=== PATIENT | female | born 1930 | race African-American/Black ===

== ENCOUNTER 2017-09-20 13:14 | Emergency (ER) | payer MEDICARE, OTHER ==
[~2017-09-20] VITALS: Ht 170.2 cm; Wt 71.4 kg
[~2017-09-20 13:14] MED LIST: ASPIRIN 32325 MG/TAB PO; ASPIRIN E.C. 8181 MG PO; COZAAR 50MG50 MG/TAB PO; COZAAR100 MG PO; DILANTIN 100MG100 MG PO; DILANTIN KAPSEA30 MG PO; HCTZ 25MG TAB25 MG PO; K-DUR 10 MEQ T10 MEQ PO; K-TAB20 PO; KEPPRA1000 MG PO; PLAVIX 75MG TAB75 MG PO; SYNTHROID 0.0.025 MG PO; SYNTHROID0.05 MG/TA PO; ZOCOR 20MG20 MG PO; ZOCOR 40MG40 MG PO; ZOCOR5 MG PO
[2017-09-20 13:22] VITALS: BP 189/79; TEMP 97.2
[2017-09-20] MEDS ORDERED: ALDACTONE 25MG25 M1 PO (13:59)
[2017-09-20] MEDS ORDERED: ZONEGRAN50 MG PO (14:00)
[2017-09-20 14:37] LABS: BASO # 0.1 (0.0-0.2); BASO % 0.8 % (0.0-2.0); EOS % 0.4 % (0-4.0); GRAN # 6.6 (1.4-6.5); GRAN % 84.3 % (42.2-75.2); HEMOGLOBIN 11.7 g/dl (12.5-16.0); LYMPH # 0.7 (1.2-3.4); LYMPH % 9.3 % (20.0-51.0); MEAN CELL VOLUME 92 fl (80.0-100.0); MEAN CORPUSCULAR HEMOGLOBIN 30 pg (27.0-31.0); MEAN CORPUSCULAR HGB CONC 33 g/dl (33.0-37.0); MEAN PLATELET VOLUME 9.3 fl (7.4-10.4); MONO # 0.4 (0.1-0.6); MONO % 4.9 % (1.7-9.3); PLATELET COUNT 284 K/mm3 (130-400); RED BLOOD COUNT 3.88 M/mm3 (4.10-5.30); REDCELL DISTRIBUTION WIDTH-CV 13.1 % (11.5-14.5)
[2017-09-20 14:39] LABS: HEMATOCRIT 35.7 % (37.0-47.0)
[2017-09-20 14:46] LABS: ALBUMIN 4.4 gm/dL (3.5-5.0); BILIRUBIN,TOTAL 0.6 mg/dL (0.0-1.0); CALCIUM 9.7 mg/dL (8.4-10.2); CREATININE, serum 0.83 mg/dL (0.52-1.25); POTASSIUM 3.6 mmol/L (3.4-5.0); TOTAL PROTEIN 8.4 gm/dL (6.4-8.2)
[2017-09-20 15:02] LABS: PROLACTIN 7.4 ng/mL (3.0-18.6)
[2017-09-20 15:34] LABS: COLLECTION METHOD CLEAN CATCH
[2017-09-20 15:49] LABS: PH 7 (5-8); SQUAMOUS EPITHELIAL 0-2 /hpf; URINE APPEARANCE Clear; URINE BACTERIA None Seen /hpf; URINE BILIRUBIN Negative (NEGATIVE); URINE BLOOD Negative (NEGATIVE); URINE COLOR Straw; URINE GLUCOSE Negative (NEGATIVE); URINE KETONE Negative (NEGATIVE); URINE LEUKOCYTE ESTERASE Negative (NEGATIVE); URINE NITRATE Negative (NEGATIVE); URINE PROTEIN(semi-quant) Negative (NEGATIVE); URINE RBC 0-2 /hpf; URINE UROBILINOGEN Negative (NEGATIVE)
[2017-09-20 16:10] VITALS: PULSE 63
== END 2017-09-20 16:14 | disposition home or self-care (01) ==
LOC: COL.ER 13:14
PROVIDERS: Emergency Medicine
DX: G40.909 Epilepsy, unspecified, not intractable, without status epilepticus (principal); I10 Essential (primary) hypertension; E78.5 Hyperlipidemia, unspecified; E03.9 Hypothyroidism, unspecified; Z79.82 Long term (current) use of aspirin
CPT/HCPCS: J1953